=== PATIENT | male | born 1960 | race Caucasian/White ===

== ENCOUNTER 2020-11-29 09:01 | Inpatient (IN) ==
[2020-11-29] MEDS ORDERED: SODIUM CHLORIDE 0.9% 1,000 ML IV STA (09:28)
[2020-11-29 10:05] LABS: Alanine Aminotransferase 25 U/L (16-61); Albumin 4.3 G/DL (3.4-5.0); Alkaline Phosphatase 79 U/L (45-117); Aspartate Amino Transferase 18 U/L (0-37); Bilirubin,Total < 0.39 MG/DL (0.2-1.0); Blood Urea Nitrogen 14 MG/DL (7-18); Calcium 9.6 MG/DL (8.5-10.1); Carbon Dioxide 17 MMOL/L (21-32); Glucose 144 MG/DL (74-106); Osmolality,Calculated 276.8 MOS/KG (273-304); Potassium 3.6 MMOL/L (3.5-5.1); Sodium 137 MMOL/L (136-145); Total Protein 8.5 G/DL (6.4-8.3)
[2020-11-29 10:06] LABS: Estimated Glom Filtration Rate 0 ML/MIN
[2020-11-29 10:12] LABS: Bacteria,Urine Occasional /HPF (Few); Bilirubin,Urine Negative (Negative); Blood, Urine Negative (Negative); Glucose,Urine (UA) Negative (Negative); Ketones,Urine 5 mg/dL (Negative); Mucus,Urine Occasional /LPF (Occasional); Nitrite,Urine Negative (Negative); Protein,Urine Negative; RBC,Urine <1 /HPF (0-4); Urine Appearance CLEAR (Clear); Urine Color Yellow (Yellow); Urine Specific Gravity 1.018 (1.001-1.035); Urine Urobilinogen < 2.0 EU/DL (0.2-1.0)
[2020-11-29 10:21] LABS: Basophils % 0.1 % (0.0-0.8); Hematocrit 42.4 VOL% (42.0-52.0); Hemoglobin 14.1 GM/DL (14.0-18.0); Immature Granulocytes % 0.4 %; Immature Granulocytes Absolute 0.04 #; Lymphocytes # 0.6 10*3/uL (1.4-4.0); Lymphocytes % 5.8 % (21.2-54.2); Mean Corpuscular HGB Conc 33.3 GM/DL (32-36); Mean Corpuscular Volume 96.8 FL (87-102); Mean Platelet Volume 10.3 FL (9.6-12.0); Monocytes % 1.7 % (1.7-12.7); Platelet Count 236 T/CUMM (130-400); Red Blood Count 4.38 MC/CUMM (3.8-5.5); Red Cell Distribution Width 13.4 % (9.3-17.3); White Blood Count 9.9 T/CUMM (4-12)
[2020-11-29 10:29] LABS: Partial Thromboplastin Time 25.4 SECS (23.9-33.8)
[2020-11-29 10:51] LABS: Band Neutrophils 1 % (0-10); Hypochromasia Slight; Lymphocytes 5 % (20-55); Segmented Neutrophils 91 % (50-85); Total Cells Counted 100
[2020-11-29 10:52] LABS: Microcytosis Slight; Ovalocytes Slight; Platelet Estimate Normal
[2020-11-29] MEDS ORDERED: traZODone 50 MG TABLET PO PRN (12:28)
[2020-11-29] MEDS ORDERED: ONDANSETRON 4 MG TABLET PO PRN (12:28)
[2020-11-29] MEDS ORDERED: GLUCAGON 1 MG VIAL IM PRN (12:32)
[2020-11-29] MEDS ORDERED: DEXTROSE 50% 25 GM/50 ML VIAL IV PRN (12:32)
[2020-11-29] MEDS: ALBUTEROL 2.5 MG/3 ML NEB RESP TX SCH ×2 (13:47→19:43)
[2020-11-29 13:55] LABS: Osmolality,Calculated 279.4 MOS/KG (273-304); Potassium 4.9 MMOL/L (3.5-5.1)
[2020-11-29] MEDS: SODIUM CHLORIDE 0.9% 1,000 ML IV SCH ×2 (16:05→23:20)
[2020-11-29] MEDS: ENOXAPARIN 40 MG/0.4 ML SYRINGE SUBCUT SCH (16:05)
[2020-11-29] MEDS: OXcarbazepine 300 MG TABLET PO SCH (20:49)
[2020-11-29] MEDS: OMEGA 3 ACID ETHYL ESTERS 1 GM CAPSULE PO SCH (20:49)
[2020-11-29] MEDS: SIMVASTATIN 10 MG TABLET PO SCH (20:50)
[2020-11-29] MEDS: OLANZapine 5 MG TABLET PO SCH (20:50)
[2020-11-30] MEDS: ALBUTEROL 2.5 MG/3 ML NEB RESP TX SCH ×4 (00:20→19:16)
[2020-11-30 05:54] LABS: Basophils % 0.1 % (0.0-0.8); Hemoglobin 11.3 GM/DL (14.0-18.0); Immature Granulocytes % 0.5 %; Immature Granulocytes Absolute 0.04 #; Lymphocytes # 1.1 10*3/uL (1.4-4.0); Mean Corpuscular HGB Conc 33.2 GM/DL (32-36); Mean Corpuscular Volume 96.6 FL (87-102); Mean Platelet Volume 9.9 FL (9.6-12.0); Monocytes % 5.8 % (1.7-12.7); Neutrophils % 79.6 % (38.7-73.9); Platelet Count 160 T/CUMM (130-400); Red Blood Count 3.52 MC/CUMM (3.8-5.5); Red Cell Distribution Width 13.7 % (9.3-17.3); White Blood Count 7.9 T/CUMM (4-12)
[2020-11-30 06:09] LABS: Albumin 3.2 G/DL (3.4-5.0); Bilirubin,Total 0.9 MG/DL (0.2-1.0); Calcium 8.2 MG/DL (8.5-10.1); Osmolality,Calculated 286.8 MOS/KG (273-304); Potassium 3.6 MMOL/L (3.5-5.1); Total Protein 6.2 G/DL (6.4-8.3)
[2020-11-30] MEDS: SODIUM CHLORIDE 0.9% 1,000 ML IV SCH (06:30)
[2020-11-30] MEDS: OLANZapine 5 MG TABLET PO SCH ×2 (09:43→21:08)
[2020-11-30] MEDS: PANTOPRAZOLE 40 MG TABLET PO SCH (09:43)
[2020-11-30] MEDS: OMEGA 3 ACID ETHYL ESTERS 1 GM CAPSULE PO SCH ×2 (09:43→21:16)
[2020-11-30] MEDS: ASPIRIN CHEW 81 MG TABLET PO SCH (09:44)
[2020-11-30] MEDS: CALCIUM (CARBONATE)/VITAMIN D 600 MG-400 UNIT TABLET PO SCH (09:44)
[2020-11-30] MEDS: OXcarbazepine 300 MG TABLET PO SCH ×2 (09:44→21:10)
[2020-11-30] MEDS: PARoxetine 10 MG TABLET PO SCH (09:44)
[2020-11-30] MEDS: MONTELUKAST 10 MG TABLET PO SCH (09:44)
[2020-11-30] MEDS: allopurinoL 300 MG TABLET PO SCH (09:44)
[2020-11-30] MEDS: SPIRONOLACTONE 25 MG TABLET PO SCH (09:44)
[2020-11-30] MEDS: VANCOMYCIN INJ 1,250 MG in SODIUM CHLORIDE 0.9% 250 ML IV SCH (14:26)
[2020-11-30] MEDS: ENOXAPARIN 40 MG/0.4 ML SYRINGE SUBCUT SCH (15:10)
[2020-11-30] MEDS: SIMVASTATIN 10 MG TABLET PO SCH (21:16)
[2020-12-01] MEDS: ALBUTEROL 2.5 MG/3 ML NEB RESP TX SCH ×2 (01:50→07:35)
[2020-12-01] MEDS: VANCOMYCIN INJ 1,250 MG in SODIUM CHLORIDE 0.9% 250 ML IV SCH (02:11)
[2020-12-01] MEDS: ASPIRIN CHEW 81 MG TABLET PO SCH (10:44)
[2020-12-01] MEDS: PANTOPRAZOLE 40 MG TABLET PO SCH (10:44)
[2020-12-01] MEDS: PARoxetine 10 MG TABLET PO SCH (10:44)
[2020-12-01] MEDS: OLANZapine 5 MG TABLET PO SCH (10:44)
[2020-12-01] MEDS: MONTELUKAST 10 MG TABLET PO SCH (10:44)
[2020-12-01] MEDS: SPIRONOLACTONE 25 MG TABLET PO SCH (10:47)
[2020-12-01] MEDS: OXcarbazepine 300 MG TABLET PO SCH (10:47)
[2020-12-01] MEDS: allopurinoL 300 MG TABLET PO SCH (10:47)
[2020-12-01] MEDS: CALCIUM (CARBONATE)/VITAMIN D 600 MG-400 UNIT TABLET PO SCH (10:48)
[2020-12-01] MEDS: OMEGA 3 ACID ETHYL ESTERS 1 GM CAPSULE PO SCH (10:49)
[2020-12-01 12:16] VITALS: BP 143/79
== END 2020-12-01 14:03 | DRG 53 ==
LOC: EDUNIT# → EDBD → N.ED 09:01 → N.EDINP 09:01 → N.TELES 17:06
PROVIDERS: ADMIT Internal Medicine; ATTEND Internal Medicine